=== PATIENT | female | born 1980 | race African-American/Black ===

== ENCOUNTER 2023-09-01 07:09 | Inpatient (IN) | payer MEDICARE, MEDICAID ==
[~2023-09-01] VITALS: Ht 152.4 cm; Wt 68.5 kg
[2023-09-01] MEDS ORDERED: ALBUTEROL (0.083%) 2.5MG/3ML NEB HHN STA ×2 (08:27→09:07)
[2023-09-01 08:37] LABS: BASOPHILS % 0.3 % (0.0-2.0); EOSINOPHILS % 1.4 % (0.0-5.0); HEMATOCRIT. 37.7 % (36.0-48.0); HEMOGLOBIN. 12.5 g/dL (12.0-16.0); MEAN CORPUSCULAR HEMOGLOBIN 28.2 pg (28.0-32.0); MEAN CORPUSCULAR HGB CONC 33.2 g/dL (31.0-37.0); MEAN CORPUSCULAR VOLUME 84.9 fL (81.0-99.0); MEAN PLATELET VOLUME 7.6 fl (7.4-10.4); MONOCYTES % 6.1 % (2.0-8.0); NEUTROPHILS % 77.2 % (40.0-76.0); PLATELET 323 x1000/uL (130-400); RED BLOOD CELL COUNT 4.44 mill/uL (4.2-5.4); WHITE BLOOD COUNT 11.4 x1000/uL (4.5-11.0)
[2023-09-01 08:49] LABS: PROTHROMBIN TIME 11.1 sec (9.6-11.0)
[2023-09-01 08:56] LABS: ADD RBC MORPHOLOGY YES; DIFFERENTIAL COMMENT 1
[2023-09-01 08:58] LABS: CHLORIDE 107 mEq/L (98-107); INDEX HEMOLYSI 1 (1-3); INDEX ICTERIC 1 (1-4); INDEX LIPEMIC 1 (1-3); POTASSIUM 3.2 mEq/L (3.5-5.1); SODIUM 138 mEq/L (136-145)
[2023-09-01] MEDS ORDERED: METHYLPREDNISOLONE SOD SUCC 125MG/2ML (ACT-O-VIAL) IV STA (09:07)
[2023-09-01] MEDS ORDERED: IPRATROPIUM BROMIDE (0.02%) 0.5MG/2.5ML NEB HHN STA (09:07)
[2023-09-01 09:11] LABS: ALANINE AMINOTRANSFERASE 20 IU/L (13-61); ALBUMIN 3.6 g/dL (3.4-5.0); ASPARTATE AMINOTRANSFERASE 10 IU/L (15-37); BILIRUBIN TOTAL 0.4 mg/dL (0.1-1.0); CALCIUM 8.9 mg/dL (8.5-10.1); CARBON DIOXIDE 25 mEq/L (21-32); CREATININE 0.4 mg/dL (0.6-1.3); GLUCOSE 85 mg/dL (70-105); NT PRO B-TYPE NATRIURETIC PEP 73 pg/mL (5-125); UREA NITROGEN BLOOD 11 mg/dL (7-21)
[2023-09-01 09:15] VITALS: PULSE 82; RESP 20
[2023-09-01 09:16] LABS: TROPONIN I HIGH SENSITIVITY < 4 ng/L (<54)
[2023-09-01 09:45] LABS: ANISOCYTOSIS 2+; PLATELET ESTIMATE NORMAL
[2023-09-01 10:00] VITALS: PULSE 90; RESP 20
[2023-09-01 11:28] LABS: CLARITY URINE CLEAR (CLEAR); COLOR URINE YELLOW (YELLOW); GLUCOSE URINE NEGATIVE (NEGATIVE); KETONES URINE 4+ (NEGATIVE); LEUKOCYTE ESTERASE URINE NEGATIVE (NEGATIVE); NITRITE URINE NEGATIVE (NEGATIVE); OCCULT BLOOD URINE NEGATIVE (NEGATIVE); PROTEIN URINE NEGATIVE (NEGATIVE); SPECIFIC GRAVITY URINE 1.018 (1.005-1.030)
[2023-09-01 12:36] LABS: BG BASE EXCESS 1.3 mmol/L (-2.0-2.0); BG CARBOXYHEMOGLOBIN 0.3 % (0.5-1.5); BG DEOXYHEMOGLOBIN 1.3 % (0.0-5.0); BG FRACTION INSPIRED OXYGEN 21; BG HCO3 ACT 21.2 mmol/L (22.0-26.0); BG METHEMOGLOBIN 0.3 % (0.0-1.5); BG OXYGEN SATURATION 98.7 % (92.0-98.5); BG OXYHEMOGLOBIN 98.1 % (94.0-97.0); BG PCO2 22.3 mmHg (35.0-45.0); BG PH 7.595 (7.350-7.450); BG PO2 109.3 mmHg (75.0-100.0); BG SAMPLE SITE RIGHT BRACHIAL; BG TOTAL HEMOGLOBIN 13.3 g/dL (12.0-18.0); BG VENT MODE ROOM AIR
[2023-09-01 17:52] VITALS: BP 136/76; PULSE 91; RESP 16; TEMP 98.4
[2023-09-01] MEDS ORDERED: ONDANSETRON HCL 4MG/2ML INJ IV PRN (19:15)
[2023-09-01] MEDS ORDERED: POTASSIUM CHLORIDE 20MEQ TABLET SR PO NR (19:45)
[2023-09-01 20:00] VITALS: BP 133/82; PULSE 92; RESP 20; TEMP 98.4
[2023-09-01] MEDS ORDERED: ACETAMINOPHEN 325MG TABLET PO PRN (20:00)
[2023-09-01] MEDS: KETOROLAC 30MG/ML VIAL IV PRN (21:24)
[2023-09-01 22:09] LABS: TROPONIN I HIGH SENSITIVITY < 4 ng/L (<54)
[2023-09-02] VITALS (9 sets, daily range): BP systolic 128–141; BP diastolic 85–90; PULSE 76–105; RESP 17–20; TEMP 96.8–98.9; O2SAT 94–98
[2023-09-02] MEDS: IPRATROPIUM/ALBUTEROL 0.5-3(2.5)MG/3ML NEB HHN SCH ×3 (01:07→14:38)
[2023-09-02] MEDS: KETOROLAC 30MG/ML VIAL IV PRN (04:01)
[2023-09-02 08:28] LABS: HEPATITIS B SURFACE ANTIGEN NEGATIVE
[2023-09-02 08:57] LABS: HEPATITIS C VIR.AB 0.14 INDEXVAL (0.00-0.80)
[2023-09-02] MEDS ORDERED: LORAZEPAM 0.5MG TABLET PO SCH (10:00)
[2023-09-02] MEDS ORDERED: METHYLPREDNISOLONE SOD SUCC 40MG/ML (ACT-O-VIAL) IV SCH (11:00)
[2023-09-02 11:19] LABS: HEMATOCRIT. 38.2 % (36.0-48.0); HEMOGLOBIN. 12.7 g/dL (12.0-16.0); MEAN CORPUSCULAR HEMOGLOBIN 28.3 pg (28.0-32.0); MEAN CORPUSCULAR HGB CONC 33.1 g/dL (31.0-37.0); MEAN CORPUSCULAR VOLUME 85.5 fL (81.0-99.0); MEAN PLATELET VOLUME 7.5 fl (7.4-10.4); PLATELET 355 x1000/uL (130-400); RED BLOOD CELL COUNT 4.47 mill/uL (4.2-5.4); RED CELL DISTRIBUTION WIDTH 22.2 % (11.6-14.6); WHITE BLOOD COUNT 24.8 x1000/uL (4.5-11.0)
[2023-09-02 11:27] LABS: DIFFERENTIAL COMMENT 1
[2023-09-02 11:48] LABS: CHLORIDE 108 mEq/L (98-107); INDEX HEMOLYSI 1 (1-3); INDEX ICTERIC 1 (1-4); INDEX LIPEMIC 1 (1-3); POTASSIUM 3.4 mEq/L (3.5-5.1); SODIUM 138 mEq/L (136-145)
[2023-09-02 11:55] LABS: CALCIUM 8.9 mg/dL (8.5-10.1); CARBON DIOXIDE 26 mEq/L (21-32); CREATININE 0.5 mg/dL (0.6-1.3); GLUCOSE 112 mg/dL (70-105); UREA NITROGEN BLOOD 16 mg/dL (7-21)
[2023-09-02] MEDS ORDERED: FAMOTIDINE 20MG TABLET PO SCH ×2 (12:00→21:00)
[2023-09-02] MEDS ORDERED: NICOTINE 7MG PATCH TD SCH (16:15)
[2023-09-02] MEDS ORDERED: AZITHROMYCIN 500 MG TABLET PO SCH (17:00)
[2023-09-02] MEDS ORDERED: LORATADINE 10MG TABLET PO SCH (17:00)
[2023-09-02] MEDS ORDERED: ALBU18HF2 IH (17:12)
[2023-09-02] MEDS ORDERED: FLUT1DIS3 INH (17:12)
[2023-09-02] MEDS ORDERED: P20 MT (17:12)
[2023-09-02] MEDS ORDERED: IPRA3AMP9 NEB (17:12)
[2023-09-02] MEDS ORDERED: BUDESONIDE 0.5MG/2ML NEB HHN SCH (18:00)
[2023-09-02] MEDS ORDERED: IPRATROPIUM/ALBUTEROL 0.5-3(2.5)MG/3ML NEB HHN SCH (20:00)
[2023-09-02] MEDS ORDERED: GUAIFENESIN 600MG ER TABLET PO SCH (21:00)
[2023-09-03 05:44] LABS: PLATELET ESTIMATE NORMAL
[2023-09-03] MEDS ORDERED: AZITHROMYCIN 250 MG TABLET PO SCH (09:00)
== END 2023-09-02 18:22 | disposition home or self-care (01) | DRG 190 ==
LOC: ER 07:09 → EDBEDREQ 10:54 → EDBEDREQTM 10:54 → 3WST 17:21
PROVIDERS: ADMIT Internal Medicine; ATTEND Internal Medicine
DX: J44.1 Chronic obstructive pulmonary disease with (acute) exacerbation (principal); J96.01 Acute respiratory failure with hypoxia; J45.901 Unspecified asthma with (acute) exacerbation; G35 Multiple sclerosis; F17.210 Nicotine dependence, cigarettes, uncomplicated; E87.6 Hypokalemia; J00 Acute nasopharyngitis [common cold]; Z28.310 Unvaccinated for COVID-19; Z88.0 Allergy status to penicillin
CPT/HCPCS: 36415; 36600; 71045; 80048; 80053; 81003; 82375; 82805; 83880; 84484; 85025; 85379; 86803; 87340; 87426; 93005; 94640; 99285; J1885; J2920; J2930